=== PATIENT | male | born 1960 | race African-American/Black ===

== ENCOUNTER 2018-06-25 12:46 | Emergency (ER) | payer SELFPAY ==
[~2018-06-25] VITALS: Ht 172.7 cm; Wt 85.0 kg
[2018-06-25] MEDS ORDERED: SODIUM CHLORIDE 0.9% 1,000 ML IV ONE (13:24)
[2018-06-25 13:43] LABS: BASOPHILS % 0.6 % (0.0-2.0); EOSINOPHILS % 1.8 % (0.0-5.0); HEMATOCRIT. 27.4 % (42.0-52.0); HEMOGLOBIN. 9.2 g/dL (14.0-18.0); LYMPHOCYTES % 11.9 % (20.0-50.0); MEAN CORPUSCULAR HEMOGLOBIN 30.7 pg (28.0-32.0); MEAN CORPUSCULAR VOLUME 91.4 fL (80.0-94.0); MEAN PLATELET VOLUME 6.8 fl (7.4-10.4); MONOCYTES % 7.5 % (2.0-8.0); NEUTROPHILS % 78.2 % (40.0-76.0); PLATELET 548 x1000/uL (130-400); RED CELL DISTRIBUTION WIDTH 14.3 % (11.6-14.6)
[2018-06-25 13:47] LABS: CHLORIDE 105 mEq/L (98-107)
[2018-06-25 13:50] LABS: PROTHROMBIN TIME 10.3 sec (9.6-11.0)
[2018-06-25 13:52] LABS: ETHANOL BLOOD < 10 mg/dL
[2018-06-25 15:48] VITALS: BP 115/78
== END 2018-06-25 16:08 | disposition home or self-care (01) ==
LOC: ER 12:46
DX: S32.9XXD Fracture of unspecified parts of lumbosacral spine and pelvis, subsequent encounter for fracture with routine healing (principal); R55 Syncope and collapse; D64.9 Anemia, unspecified; V49.88XD Car occupant (driver) (passenger) injured in other specified transport accidents, subsequent encounter
CPT/HCPCS: 36415; 80053; 80320; 85025; 85610; 93005; 96360; 96361; 99284; J7030; G0480

== ENCOUNTER 2024-02-28 21:02 | Emergency (ER) | payer MEDICAID ==
[~2024-02-28] VITALS: Ht 170.2 cm; Wt 82.1 kg
[2024-02-28 21:32] VITALS: O2SAT 98
[2024-02-29] MEDS ORDERED: ACETAMINOPHEN 325MG TABLET PO ONE (00:30)
[2024-02-29] MEDS ORDERED: KETOROLAC 30MG/ML VIAL IM ONE (00:30)
[2024-02-29 01:30] LABS: BASOPHILS % 0.6 % (0.0-2.0); EOSINOPHILS % 1.8 % (0.0-5.0); HEMATOCRIT. 44.5 % (42.0-52.0); HEMOGLOBIN. 14.4 g/dL (14.0-18.0); LYMPHOCYTES % 36.9 % (20.0-50.0); MEAN CORPUSCULAR HGB CONC 32.4 g/dL (31.0-37.0); MEAN CORPUSCULAR VOLUME 95.5 fL (80.0-94.0); MEAN PLATELET VOLUME 7.7 fl (7.4-10.4); MONOCYTES % 8.1 % (2.0-8.0); NEUTROPHILS % 52.6 % (40.0-76.0); PLATELET 242 x1000/uL (130-400); RED BLOOD CELL COUNT 4.66 mill/uL (4.7-6.1); RED CELL DISTRIBUTION WIDTH 13.4 % (11.6-14.6); WHITE BLOOD COUNT 12.6 x1000/uL (4.5-11.0)
[2024-02-29 01:45] LABS: CARBON DIOXIDE 26 mEq/L (21-32); CHLORIDE 103 mEq/L (98-107); SODIUM 137 mEq/L (136-145)
[2024-02-29 01:46] LABS: CALCIUM 9.5 mg/dL (8.7-10.4)
[2024-02-29 01:50] LABS: CREATININE 1.3 mg/dL (0.6-1.3); URIC ACID 7.4 mg/dL (3.7-9.2)
[2024-02-29 01:51] LABS: GLUCOSE 144 mg/dL (70-105); UREA NITROGEN BLOOD 13 mg/dL (9-23)
[2024-02-29 01:52] LABS: ALANINE AMINOTRANSFERASE 27 IU/L (10-49); ALBUMIN 4.3 g/dL (3.2-4.8); ASPARTATE AMINOTRANSFERASE 24 IU/L (<34)
[2024-02-29 01:53] LABS: BILIRUBIN TOTAL 0.6 mg/dL (0.1-1.0); PROTEIN TOTAL 7.7 g/dL (6.0-8.3)
[2024-02-29] MEDS ORDERED: SULF1TAB48 MT (02:01)
[2024-02-29] MEDS ORDERED: CEPH500C2 MT (02:01)
[2024-02-29 02:27] VITALS: BP 165/87; PULSE 89; RESP 16; TEMP 36.94740; O2SAT 98
[2024-02-29] MEDS ORDERED: ACETAMINOPHEN 325MG TABLET PO NR (02:30)
[2024-02-29] MEDS ORDERED: KETOROLAC 30MG/ML VIAL IM NR (02:30)
== END 2024-02-29 02:28 | disposition home or self-care (01) ==
LOC: ER 21:02
DX: M25.531 Pain in right wrist (principal); M79.641 Pain in right hand; Z98.890 Other specified postprocedural states
CPT/HCPCS: 99284; 73100; 73120; 80053; 84550; 85025; 36415; J1885